=== PATIENT | male | born 1950 | race Caucasian/White ===

== ENCOUNTER 2019-12-09 11:55 | Day surgery (SDC) | payer MEDICARE, OTHER ==
[~2019-12-09] VITALS: Ht 172.7 cm; Wt 93.0 kg
--- NOTE | ~2019-12-09 | OR ---
[facility] [address], [place] [address] Draft DATE OF OPERATION: 12/09/2019 SURGEON: Mar Heath MD PREOPERATIVE DIAGNOSES: 1. Family history of colon cancer (sister). 2. History of tubulovillous adenoma, left colon, 2011. POSTOPERATIVE DIAGNOSIS: Extensive sigmoid and left-sided diverticulosis. No evidence of recurrent or new polyp. PROCEDURE PERFORMED: Total colonoscopy to cecum. ANESTHESIA: Intravenous sedation, fentanyl 100 mcg, Versed 5 mg. INDICATION: This 69-year-old white man is a patient of Dr. Lopes and underwent colonoscopy in 2011, where he was found to have a tubulovillous adenoma of the left colon, which was excised. He is generally symptom-free. He does have family history of colon cancer in his sister. He is admitted to undergo surveillance colonoscopy. He understand the risks of bleeding, infection, and perforation. FINDINGS: The prep was good. Complete colonoscopy was undertaken to the cecum. Intubation of the cecum was not forthcoming though the cecal mucosa was grasped and elevated and evaluated. He had extensive diverticular change of the sigmoid and left colon. Retroflexed view showed normal anorectum. DESCRIPTION OF PROCEDURE: The patient was brought to the endoscopy suite and placed in lateral decubitus position, given intravenous sedation to the point of slurred speech and nystagmus. Digital rectal examination was normal. An Olympus video colonoscope was passed in the rectum and manipulated throughout the colon ultimately intubating the right colon with visualization of the ileocecal valve. Despite various maneuvers, the scope could not fully intubate the cecum and therefore biopsy forceps was used to grasp the mucosa behind the ileocecal valve evaluating more fully. The scope was then withdrawn and examination throughout showed no sign of polyps PATIENT NAME: JONATAN MOTTA OPERATIVE REPORT DATE OF : 50 REPORT #: [id number] PHYSICIAN: MAR HEATH MD PCP: MARIANGEL LOPES MD REPORT IS CONFIDENTIAL AND NOT TO BE RELEASED WITHOUT AUTHORIZATION [facility] [address] [facility] [place], [place] [address] Draft or colitis, only diverticular changes as previously noted in the left colon and sigmoid. Retroflexed view of the rectum was normal. The scope was removed and the patient was taken to recovery room in good condition. CONCLUDING DIAGNOSIS: Extensive diverticulosis. No evidence of recurrent polyps. PLAN: Recommend repeat colonoscopy in 5 years based on family history of colon cancer in his sister. Scope sooner if symptoms should warrant. Maintain high-fiber diet. Return to the ongoing care of Dr. Lopes. MD JUMA Kimball/MODL /[id number] cc: Dr. Lopes Copies: ~ PATIENT NAME: JONATAN MOTTA OPERATIVE REPORT DATE OF : 50 REPORT #: [id number] PHYSICIAN: MAR HEATH MD PCP: MARIANGEL LOPES MD REPORT IS CONFIDENTIAL AND NOT TO BE RELEASED WITHOUT AUTHORIZATION
[~2019-12-09 11:55] MED LIST: ATORVASTATIN CA80 MG PO; EZETIMIBE10 MG; FENOFIBRATE145 MG; HYDROCODON-ACE1 EA10 PO; METOPROLOL SUCC25 MG PO; ONDANSETRON ODT4 MG PO
[2019-12-09] MEDS ORDERED: OMEPRAZOLE20 MG PO (12:24)
[2019-12-09] MEDS ORDERED: ASPIR-LOW81 MG PO (12:24)
--- NOTE | 2019-12-09 14:49 | NUR ---
12/09/19 Alonso8 Natalya Ortiz [facility]-PT ARRIVES TO PACU FROM ENDO ROOM ON 3 L VIA NC. PT REACTIVE AND RESPONSIVE TO VERBAL STIMULUS. VSS. SATS >90%. PT ABLE TO PASS GAS
== END 2019-12-09 15:15 | disposition home or self-care (01) ==
LOC: DS 11:55 → OPS 11:55 → DS 13:00 → OPS 13:00
PROVIDERS: Surgery
PROC: 0DJD8ZZ Inspection of Lower Intestinal Tract, Via Natural or Artificial Opening Endoscopic (ICD-10-PCS; principal; 2019-12-09 13:00)
DX: Z12.11 Encounter for screening for malignant neoplasm of colon (principal); K57.30 Diverticulosis of large intestine without perforation or abscess without bleeding; I10 Essential (primary) hypertension; E66.9 Obesity, unspecified; I21.9 Acute myocardial infarction, unspecified; Z87.891 Personal history of nicotine dependence; Z86.010 Personal history of colon polyps; Z80.0 Family history of malignant neoplasm of digestive organs; Z88.8 Allergy status to other drugs, medicaments and biological substances; Z79.82 Long term (current) use of aspirin; Z79.899 Other long term (current) drug therapy; Z68.32 Body mass index [BMI] 32.0-32.9, adult
CPT/HCPCS: G0105; 99153; G0500; J2250; J3010; J7121